=== PATIENT | female | born 1995 | race Caucasian/White ===

== ENCOUNTER → 2019-07-16 14:21 | Outpatient (CLI) | payer OTHER, SELFPAY ==
[2019-07-16 15:21] VITALS: BMI 20.9
== END ==
PROVIDERS: Referring Provider Physician Assistant; Visit Provider Physician Assistant
DX: J02.9 Acute pharyngitis, unspecified (principal)
CPT/HCPCS: 87070

== ENCOUNTER 2021-08-24 17:49 | Emergency (ER) | payer OTHER, SELFPAY ==
[2021-08-24 17:51] VITALS: BP 128/91; PULSE 84; RESP 16; TEMP 36.4; O2SAT 99; BMI 20.4
--- NOTE | 2021-08-24 19:58 | EDS_ITS ---
HPI History of Present Illness Chief Complaint: Nausea/Vomiting Informant: patient Onset/Context/Timing Onset: Days Context: Gradual Timing: Continuous Current Severity: Mild Maximum Severity: Moderate Associated Symptoms/Injury Associated Symptoms: Positive for Nausea and Vomiting; Negative for Fever, Sore Throat, Sinus Pressure, Numbness, Tingling, Preceding Aura, Visual Changes, Blurred Vision, Photophobia and Visual Loss Injury - ARIAS: Negative for Direct Trauma, Fall and Assault Narrative Narrative: 26-year-old female history of prior vertigo and migraine headaches. Said on she and her went out there drinking relatively heavily and she had a blackout. She said she did not know if she hit her head or she had any head trauma. On Sunday and Sunday she had a lot of nausea and vomiting which she attributed to hangover. States she still has a headache and does not feel well. She does have a history of migraine headaches. She denies any fever. Prior to she has been feeling fine. Prior similar symptoms: Yes Recent Illness/Hospitalization: No PFSH PFSH Medical History Back pain Knee pain Home Medications multivitamin [Multi-Daily] 1 tab PO DAILY 08/24/21 [History Last Taken Unknown] Allergy/AdvReac Type Severity Reaction Status Date / Time No Known Allergies Allergy Unverified 07/16/19 15:15 Surgical History History of breast augmentation History of reconstruction of anterior cruciate ligament tear Social History Smoking Status: Never smoker alcohol intake: current Alcohol type: wine ROS ROS ED ROS Narrative Headache with nausea and vomiting resolved. Review of Systems ROS Unobtainable: Denies due to encephalopathy Constitutional Constitutional ED: Denies chills or fever(s) Eyes Eyes: Denies change in vision ENT ENT ED: Denies ear pain or sore throat Cardiovascular Cardiovascular: Denies chest pain Respiratory/Chest Respiratory/Chest: Denies cough or dyspnea Gastrointestinal Gastrointestinal: Reports nausea and vomiting; Denies abdominal pain, constipation or diarrhea Genitourinary Genitourinary ED: Denies dysuria Musculoskeletal Musculoskeletal: Denies myalgias Integumentary Denies rash Neurologic Neurologic: Reports headache(s) Psychiatric Psychiatric: Denies depression Endocrine Endocrinology: Denies polyuria Hematologic/Lymphatic Hematologic/Lymphatic: Denies easy bruising Allergic/Immunologic Allergic/Immunologic ED: Denies urticaria EXAM Physical Exam Narrative Exam Narrative: 46-year-old female no acute distress vital signs stable afe brile. Pulse ox 9 9% on room air no signs hypoxia. She does not look septic or toxic. She is sitting at bedside in chair. No one else is in the room. H EENT exam unremarkable. Pupils round reactive light. No signs of trauma. Moist weeks membranes. Neck nontender no lymphadenopathy. No meningismus. Lungs clear to auscultation. Heart regular rhythm no murmur rate about 80. Chest were nontender. Abdomen soft nontender. Normal bowel sounds no peritoneal signs. Back nontender. Moving all 4 extremities. Nontender. Neurologic exam normal NIH of 0. 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 Normal speech. Dorsi plantarflexion intact. Fingertip to nose normal. Const Vital Signs: 08/24/21 17:51 Temperature 97.6 F L Temperature Source Temporal Pulse Rate 84 Respiratory Rate 16 Blood Pressure 128/91 H Blood Pressure Mean 103 Pulse Ox 99 Oxygen Delivery Method Room Air Positive well nourished and well developed; Negative for obese, cachectic, contractures or unkempt General Appearance ED: well developed and NAD; Negative for unkempt, cachectic, contractures, cyanotic, diaphoretic or pallor Nutritional Appearance: Negative for cachectic or obese HEENT Reports normocephalic and moist mucous membranes; Denies dry mucous membranes atraumatic; Negative for trauma, tenderness, temporal artery tenderness or vesicular rash Face and Sinus: Negative for sinus tenderness Mouth ED: No dry mucous membranes Mouth: No dry mucous membranes Eyes PERRL and EOMs intact bilaterally General Eye ED: Negative for pale conjunctiva or scleral icterus Neck no lymphadenopathy, supple, no meningeal signs and no JVD General: Negative for tenderness Resp normal respiratory effort and clear to auscultation bilaterally Auscultation: Negative for rales, rhonchi or wheezes Cardio regular rate, regular rhythm, S1 normal heart sound, S2 normal heart sound and no murmurs GI non-tender and non-distended Auscultation: normoactive bowel sounds; Negative for hyperactive bowel sounds or hypoactive bowel sounds Palpation: soft; Negative for firm, tender, guarding or rigid Back/Spine no CVA tenderness General Back: Negative for CVA tenderness or tenderness Cervical Spine: Negative for cervical spine tenderness Thoracic Spine / Upper Back: Negative for thoracic spinal tenderness Lumbar Spine / Lower Back: Negative for lumbar spinal tenderness Extremity normal to inspection and full ROM; Negative for normal capillary refill General Extremety ED: Negative for edema, tenderness or other findings General Extremity: Negative for edema or other findings Neuro oriented x3, CN's II-XII intact bilaterally and no sensory deficits noted Beverly Coma Scale: document GCS findings Spontaneous Obeys Commands Oriented 15 Sensorium / Orientation: awake, alert, oriented to person and oriented to place; Negative for orientation impaired or stuporous Speech: speech normal Motor Exam: strength 5/5 throughout; Negative for general weakness Psych Appearance: Negative for unkempt Skin General Skin Exam: Negative for jaundice or pallor Lesions: no lesions Rashes: no rashes and No rashes noted MDM MDM MDM Narrative Medical decision making narrative: 26-year-old female with a headache after New Year's when she was intoxicated and may have blacked out. Exam benign. She will be treated with IV fluids, Toradol, Benadryl and Compazine for possible migraine. Obtain screening labs and a CT of her brain. Repeat exam patient is doing well at 9:14 PM. Exam normal. She is feeling improved after the IV fluids and medications her headache is improving. Repeat exam at 9:55 PM she is doing well be discharged home. Lab Data Attestation: I reviewed the patient's lab results. Lab results narrative: Covid test negative. White count normal at 7 hemoglobin 15. Platelets 278. Electrolytes potassium 3.4 gap is 7 normal BUN and creatinine. Liver enzymes unremarkable total bilirubin 1.9. Glucose 92. CAT scan of brain shows no acute abnormality. test negative. Labs: Laboratory Results - last 24 hr 08/24/21 08/24/21 08/24/21 20:28 20:28 20:28 WBC 7.4 RBC 5.11 Hgb 15.4 H Hct 45.7 MCV 89.4 MCH 30.1 MCHC 33.7 RDW Std Deviation 37.9 RDW Coeff of Benito 11.6 Plt Count 278 MPV 9.9 Immature Gran % (Auto) 0.100 Neut % (Auto) 57.9 Lymph % (Auto) 30.4 Atlantic % (Auto) 9.1 Eos % (Auto) 2.0 Baso % (Auto) 0.5 Absolute Neuts (auto) 4.3 Absolute Lymphs (auto) 2.24 Nucleated RBC % 0 Sodium 139 Potassium 3.4 L Chloride 105 Carbon Dioxide 27.0 Anion Gap 7 BUN 16 Creatinine 0.80 Estim Creat Clear Calc 92.73 Est GFR (MDRD) Af Amer 110 Est GFR (MDRD) Non-Af 91 BUN/Creatinine Ratio 20.0 Glucose 92 Calcium 9.6 Total Bilirubin 1.90 H AST 16 ALT 23 Alkaline Phosphatase 75 Total Protein 8.6 H Albumin 4.1 Globulin 4.5 H Albumin/Globulin Ratio 0.9 Serum , Qual NEGATIVE Radiography Diagnostic Testing: Clinical Impression(s) from Imaging Studies Brain CT 08/24/21 20:40 IMPRESSION: Negative Brain CT without contrast. Electronically Signed: Erick Castro DO at 21:48 EST Tel , Service support , Discharge Plan Triage Chief Complaint: Nausea/Vomiting Other Complaint: Headache ED Provider: Arthur Keller Dx/Rx/DC Orders Clinical Impression: Hangover, Headache Instructions: ED Headache Unspecified Prescriptions: No Action multivitamin [Multi-Daily] Tablet 1 tab PO DAILY RF: 0 [facility] Care Provider: [facility] Referrals: [facility] [Primary Care Provider] - 3-5 Days if not improving Activity Restrictions/Additional Instructions: Plenty of fluids and rest. Motrin and Tylenol for pain. Return if feeling worse or follow-up with your primary care provider if not improving. Your CAT scan and labs tonight were all normal. Disposition Disposition: Home, Self Care
[2021-08-24] MEDS: proCHLORPERazine 10 MG/2 ML Vial IV (20:30)
[2021-08-24] MEDS: 0.9% Normal Saline 1,000 ML 1000 ML IV (20:30)
[2021-08-24] MEDS: DiphenhydrAMINE 50 MG/ML Syringe 25 MG IV (20:33)
[2021-08-24] MEDS: Ketorolac 30 MG/ML Syringe IV (20:34)
--- NOTE | 2021-08-24 20:40 | CT_ITS ---
INDICATION: headache EXAMINATION: CT BRAIN - CT Head or Brain W/O Contrast Injection TECHNIQUE: Multiple axial images were obtained of the head without intravenous contrast. A radiation dose optimization technique was used for this scan. IV Contrast dosage and agent: None. COMPARISON: None. FINDINGS: BRAIN PARENCHYMA: No intra- or extra-axial hemorrhage. No intracranial mass or mass effect. Madrigal/white matter differentiation is maintained and there is no blurring of the basal ganglia. There is no hyperdense vessel. Posterior fossa structures are unremarkable. CSF SPACES: Appropriate for age. No hydrocephalus. Basal cisterns are patent. CALVARIUM, SKULL BASE, PARANASAL SINUSES AND MASTOID AIR CELLS: Clear. No discrete lytic or blastic abnormalities. ORBITS: Both globes, extraocular muscles, optic nerves and retrobulbar fat appear unremarkable. ASPECTS Score for Acute Strokes: 10 CT/Brain/Head without Contrast IMPRESSION: Negative Brain CT without contrast. Electronically Signed: Erick Castro DO at 21:48 EST Tel , Service support ,
[2021-08-24 20:41] LABS: Absolute Lymphocyte Count 2.24 X10^3/uL (0.83-4.51); Absolute Neutrophil Count 4.3 X10^3/uL (2.0-7.7); Basophil# 0.04 X10^3/uL; Basophil% 0.5 % (0-1); Eosinophil# 0.15 X10^3/uL; Hematocrit 45.7 % (37-47); Hemoglobin 15.4 g/dL (12.0-15.0); Lymphocyte # 2.24 X10^3/ul (0.83-4.51); Lymphocyte % 30.4 % (19-41); Mean Corp Hgb Conc 33.7 g/dL (32-36); Mean Corpuscular Hgb 30.1 pg (27.0-32.0); Mean Corpuscular Volume 89.4 fL (81-99); Mean Platelet Vol. 9.9 fl (6.2-12.0); Monocyte# 0.67 X10^3/uL; Monocyte% 9.1 % (0-10); NRBC Flagged by Analyzer 0 % (0-5); Neutrophil # 4.27 X10^3/uL (2.7-7.7); Neutrophil % 57.9 % (47-70); Platelet Count 278 K/mm3 (150-450); RBC Distribution Width CV 11.6 % (11.6-14.6); RBC Distribution Width SD 37.9 fl (35.1-43.9); Red Blood Count 5.11 M/mm3 (4.2-5.4); White Blood Count 7.4 K/mm3 (4.4-11.0)
[2021-08-24 20:58] LABS: ALB/GLOB Ratio 0.9 RATIO (0.9-2.4); AST(SGOT) 16 U/L (15-37); Alanine Aminotransfer ALT/SGPT 23 U/L (13-56); Albumin, Serum 4.1 g/dL (3.2-5.0); Alkaline Phosphatase 75 U/L (45-117); Anion Gap 7 (5-15); BUN 16 mg/dL (7-18); Calcium,Total 9.6 mg/dL (8.5-10.1); Chloride 105 mmol/L (98-107); EST Glomerular Filtration Rate 91 mL/min (>60); Est Glom Filt Rate - Afr Amer 110 mL/min (>60); Estimated Creatinine Clearance 92.73 ml/min; Globulin 4.5 g/dL (2.2-4.2); Glucose 92 mg/dL (74-106); Potassium 3.4 mmol/L (3.5-5.1); Protein, Total 8.6 g/dL (6.4-8.2); Sodium Level 139 mmol/L (136-145)
[2021-08-24 21:17] LABS: Internal QC Validated? YES +Cl - CLEAR BKGD; Pregnancy, Serum, hCG Quali. NEGATIVE Negative
[2021-08-24 22:07] VITALS: BP 109/68; PULSE 71; RESP 18; O2SAT 97
== END 2021-08-24 22:09 | disposition home or self-care (01) ==
PROVIDERS: Emergency Provider Emergency Medicine; Visit Provider Emergency Medicine
DX: F10.129 Alcohol abuse with intoxication, unspecified (principal); G43.909 Migraine, unspecified, not intractable, without status migrainosus
CPT/HCPCS: 70450; 80053; 84703; 85025; 87426; 96361; 96374; 96375; 99282

== ENCOUNTER → 2022-03-07 | Outpatient (CLI) | payer OTHER, SELFPAY ==
[2022-03-07 12:41] LABS: Amphetamine Urine VISTA NEGATIVE (<1000 ng/mL); Barbiturate Urine VISTA NEGATIVE (< 200 ng/mL); Benzodiazepine Urine VISTA NEGATIVE (< 200 ng/mL); Cocaine Urine VISTA NEGATIVE (< 300 ng/mL); Ecstacy Urine VISTA NEGATIVE (< 500 ng/mL); Methadone Urine VISTA NEGATIVE (< 300 ng/mL); PCP Urine VISTA NEGATIVE (< 25 ng/mL); THC Urine VISTA NEGATIVE (< 50 ng/mL); Vista UDS pH Range 5
[2022-03-08 22:06] LABS: Chlamydia By Nucleic Acid AMP Negative (Negative)
[2022-03-09 15:39] LABS: Gonococcus By Nucleic Acid AMP Negative (Negative)
== END | disposition home or self-care (01) ==
PROVIDERS: Referring Provider Obstetrics & Gynecology; Visit Provider Obstetrics & Gynecology
DX: Z34.00 Encounter for supervision of normal first pregnancy, unspecified trimester (principal)
CPT/HCPCS: 80307; 87086; 87088; 87491; 87591

== ENCOUNTER → 2022-03-14 | Outpatient (CLI) | payer OTHER, SELFPAY | END | disposition home or self-care (01) | LOC: LABSPEC 16:18 | PROVIDERS: Referring Provider Obstetrics & Gynecology; Visit Provider Obstetrics & Gynecology | DX: N39.0 Urinary tract infection, site not specified (principal) | CPT/HCPCS: 87086; 87088 ==

== ENCOUNTER → 2022-03-17 | Outpatient (CLI) | payer OTHER, SELFPAY ==
[2022-03-17 12:38] LABS: Absolute Lymphocyte Count 2.14 X10^3/uL (0.83-4.51); Absolute Neutrophil Count 7.3 X10^3/uL (2.0-7.7); Basophil# 0.03 X10^3/uL; Basophil% 0.3 % (0-1); Eosinophil# 0.24 X10^3/uL; Eosinophils% 2.3 % (0-5); Hematocrit 39.3 % (37-47); Hemoglobin 13.4 g/dL (12.0-15.0); Lymphocyte # 2.14 X10^3/ul (0.83-4.51); Lymphocyte % 20.6 % (19-41); Mean Corp Hgb Conc 34.1 g/dL (32-36); Mean Corpuscular Hgb 30.6 pg (27.0-32.0); Mean Corpuscular Volume 89.7 fL (81-99); Monocyte# 0.67 X10^3/uL; Monocyte% 6.4 % (0-10); NRBC Flagged by Analyzer 0 % (0-5); Neutrophil # 7.27 X10^3/uL (2.7-7.7); Platelet Count 224 K/mm3 (150-450); RBC Distribution Width CV 11.9 % (11.6-14.6); RBC Distribution Width SD 39.1 fl (35.1-43.9); Red Blood Count 4.38 M/mm3 (4.2-5.4); White Blood Count 10.4 K/mm3 (4.4-11.0)
[2022-03-17 13:31] LABS: NATERA MAILED SPECIMEN
[2022-03-17 14:11] LABS: HIV - WCH Non-Reactive (Nonreactive); Hepatitis B Surface Antigen Non-Reactive (Nonreactive); Hepatitis C Antibody Non-Reactive (Nonreactive); Rubella IgG Reactive (Nonreactive); Syphilis Antibodies Non-reactive
== END | disposition home or self-care (01) ==
LOC: PAVLAB 12:19
PROVIDERS: Referring Provider Obstetrics & Gynecology; Visit Provider Obstetrics & Gynecology
DX: Z34.00 Encounter for supervision of normal first pregnancy, unspecified trimester (principal)
CPT/HCPCS: 36415; 85025; 86703; 86762; 86780; 86803; 86850; 86900; 86901; 87340

== ENCOUNTER → 2022-07-24 | Outpatient (CLI) | payer OTHER, SELFPAY ==
[2022-07-24 08:30] LABS: Absolute Lymphocyte Count 1.93 X10^3/uL (0.83-4.51); Absolute Neutrophil Count 6.5 X10^3/uL (2.0-7.7); Basophil# 0.02 X10^3/uL; Basophil% 0.2 % (0-1); Eosinophil# 0.35 X10^3/uL; Eosinophils% 3.7 % (0-5); Hematocrit 36.9 % (37-47); Hemoglobin 12.3 g/dL (12.0-15.0); Lymphocyte # 1.93 X10^3/ul (0.83-4.51); Lymphocyte % 20.2 % (19-41); Mean Corp Hgb Conc 33.3 g/dL (32-36); Mean Corpuscular Hgb 31.3 pg (27.0-32.0); Mean Corpuscular Volume 93.9 fL (81-99); Monocyte# 0.66 X10^3/uL; Monocyte% 6.9 % (0-10); NRBC Flagged by Analyzer 0 % (0-5); Neutrophil # 6.49 X10^3/uL (2.7-7.7); Platelet Count 200 K/mm3 (150-450); RBC Distribution Width SD 45.1 fl (35.1-43.9); Red Blood Count 3.93 M/mm3 (4.2-5.4); White Blood Count 9.6 K/mm3 (4.4-11.0)
[2022-07-24 08:47] LABS: Glucose Challenge Gest 1H 50g 92 mg/dL (70-140)
== END | disposition home or self-care (01) ==
PROVIDERS: Referring Provider Nurse Practitioner Women's Health; Visit Provider Nurse Practitioner Women's Health
DX: Z34.90 Encounter for supervision of normal pregnancy, unspecified, unspecified trimester (principal); Z13.1 Encounter for screening for diabetes mellitus
CPT/HCPCS: 36415; 82950; 85025

== ENCOUNTER → 2022-08-17 | Outpatient (CLI) | payer OTHER, SELFPAY ==
[2022-08-17 09:48] LABS: Basophil% 0.2 % (0-1); Eosinophils% 2.4 % (0-5); Hematocrit 36.5 % (37-47); Hemoglobin 12.6 g/dL (12.0-15.0); Lymphocyte % 14.3 % (19-41); Mean Corp Hgb Conc 34.5 g/dL (32-36); Mean Corpuscular Hgb 32.6 pg (27.0-32.0); Mean Corpuscular Volume 94.6 fL (81-99); Mean Platelet Vol. 10.5 fl (6.2-12.0); Monocyte% 5.2 % (0-10); Neutrophil % 77.2 % (47-70); Platelet Count 181 K/mm3 (150-450); RBC Distribution Width CV 12.7 % (11.6-14.6); RBC Distribution Width SD 44.1 fl (35.1-43.9); Red Blood Count 3.86 M/mm3 (4.2-5.4); White Blood Count 10.2 K/mm3 (4.4-11.0)
[2022-08-17 09:49] LABS: Absolute Lymphocyte Count 1.46 X10^3/uL (0.83-4.51); Absolute Neutrophil Count 7.9 X10^3/uL (2.0-7.7); Basophil# 0.02 X10^3/uL; Eosinophil# 0.24 X10^3/uL; Lymphocyte # 1.46 X10^3/ul (0.83-4.51); Monocyte# 0.53 X10^3/uL; NRBC Flagged by Analyzer 0 % (0-5); Neutrophil # 7.86 X10^3/uL (2.7-7.7)
[2022-08-17 10:13] LABS: ALB/GLOB Ratio 0.6 RATIO (0.9-2.4); AST(SGOT) 18 U/L (15-37); Alanine Aminotransfer ALT/SGPT 16 U/L (13-56); Albumin, Serum 2.3 g/dL (3.2-5.0); Alkaline Phosphatase 117 U/L (45-117); Anion Gap 7 (5-15); BUN 12 mg/dL (7-18); Calcium,Total 8.6 mg/dL (8.5-10.1); Chloride 106 mmol/L (98-107); EST Glomerular Filtration Rate 126 mL/min (>60); Est Glom Filt Rate - Afr Amer 153 mL/min (>60); Glucose 94 mg/dL (74-106); Potassium 3.7 mmol/L (3.5-5.1); Protein, Total 6.3 g/dL (6.4-8.2); Sodium Level 138 mmol/L (136-145)
== END | disposition home or self-care (01) ==
PROVIDERS: Referring Provider Nurse Practitioner Women's Health; Visit Provider Nurse Practitioner Women's Health
DX: R10.11 Right upper quadrant pain (principal)
CPT/HCPCS: 36415; 80053; 85025

== ENCOUNTER → 2022-08-24 | Outpatient (CLI) | payer OTHER, SELFPAY ==
--- NOTE | 2022-08-24 09:01 | US_ITS ---
STUDY: ABDOMINAL ULTRASOUND - RIGHT UPPER QUADRANT REASON FOR VISIT: Female, 27 years old RUQ pain -- patient 33weeks preg TECHNIQUE: Ultrasound evaluation of the right upper quadrant was performed with real-time and static hodgson-scale imaging. TECHNICAL QUALITY: Limited. Examination limited due to the patient?s condition. COMPARISON: None. FINDINGS: Liver: The liver measures 13.9 cm. There is normal echogenicity of the liver. The bile ducts are within normal limits. There is hepatic color flow. The direction of portal flow is hepatopetal. There is no demonstrated mass lesion. Gallbladder: Normal distended gallbladder. The gallbladder wall measures 1.2 mm. There is a negative sonographic Browne''s sign. There is no pericholecystic fluid. There are no gallstones. Common Bile Duct (C.B.D.): The common bile duct measures 2.3 mm. Pancreas: There is nonvisualization of the pancreas due to overlying bowel gas. Right Kidney: Normal size of the right kidney. The right kidney measures 10.4 cm x 5.6 cm x 4.3 cm. Normal renal cortex. The right cortex measures 1.5 cm. There is no demonstrated renal mass or cyst. There is no right hydronephrosis. US/Gallbladder IMPRESSION: Normal right upper quadrant ultrasound examination. Electronically Signed: Ambrocio Shelton MD at 14:37 EST ,
== END | disposition home or self-care (01) ==
PROVIDERS: Nurse Practitioner Women's Health; Referring Provider Obstetrics & Gynecology; Visit Provider Obstetrics & Gynecology
DX: R10.11 Right upper quadrant pain (principal)
CPT/HCPCS: 36415; 76705

== ENCOUNTER → 2022-09-12 | Outpatient (CLI) | payer OTHER, SELFPAY ==
--- NOTE | 2022-09-12 14:27 | US_ITS ---
STUDY: SECOND AND THIRD TRIMESTER OBSTETRICAL ULTRASOUND - LIMITED REASON FOR EXAM: Female, 27 years old uterine size discrepancy -- growth LMP: Unknown PRIOR ULTRASOUND: None. TECHNIQUE: Transabdominal TECHNICAL QUALITY: Adequate. FINDINGS: There is a single intrauterine fetus. The fetus is in a cephalic presentation. There is demonstrated cardiac activity with a heart rate of 150 bpm. There is a normal amniotic fluid volume. The largest amniotic fluid pocket measures 3.3 cm. The amniotic fluid index (UZIEL) is 11.4 cm. The placenta is fundal. There are Grade 3 placental changes. The cervix measures 3.7 cm in length. BIOMETRY: BPD: 8.6 cm: 34 weeks, 5 days HC: 31.7 cm: 35 weeks, 4 days AC: 31.3 cm: 35 weeks, 2 days FL: 6.6 cm: 34 weeks, 0 days Age by LMP: 35 weeks, 4 days. JOJO by LMP: October 13, 2022. age by current US: 35 weeks, 1 days. JOJO by current US: October 16 2022. Estimated weight: 2541 grams, +/- 331 grams, 31 percentile. Cephalic index 77% FL/AC 21% FL/BPD 77 HC/AC 1.01 US/OB Limited With Biometrics IMPRESSION: 35 weeks 1 day intrauterine . head very low in the pelvis and difficult to image. Electronically Signed: Derek Bryson MD at 0:10 EST ,
== END | disposition home or self-care (01) ==
LOC: OPUS 14:25
PROVIDERS: Visit Provider Registered Nurse
DX: O26.843 Uterine size-date discrepancy, third trimester (principal); Z3A.35 35 weeks gestation of pregnancy
CPT/HCPCS: 76816

== ENCOUNTER → 2022-09-18 | Outpatient (CLI) | payer OTHER, SELFPAY | END | disposition home or self-care (01) | PROVIDERS: Referring Provider Registered Nurse; Visit Provider Registered Nurse | DX: Z34.00 Encounter for supervision of normal first pregnancy, unspecified trimester (principal) | CPT/HCPCS: 87081 ==

== ENCOUNTER → 2022-10-04 | Outpatient (CLI) | payer OTHER, SELFPAY | END | disposition home or self-care (01) | PROVIDERS: Visit Provider Registered Nurse | DX: O47.9 False labor, unspecified (principal) | CPT/HCPCS: 84112 ==

== ENCOUNTER → 2022-10-16 | Outpatient (CLI) | payer OTHER, SELFPAY ==
[2022-10-16 13:38] LABS: Absolute Lymphocyte Count 1.75 X10^3/uL (0.83-4.51); Absolute Neutrophil Count 4.9 X10^3/uL (2.0-7.7); Basophil# 0.04 X10^3/uL; Basophil% 0.5 % (0-1); Eosinophil# 0.09 X10^3/uL; Eosinophils% 1.2 % (0-5); Hematocrit 41.1 % (37-47); Lymphocyte # 1.75 X10^3/ul (0.83-4.51); Lymphocyte % 23.2 % (19-41); Mean Corp Hgb Conc 34.1 g/dL (32-36); Mean Corpuscular Hgb 31.5 pg (27.0-32.0); Mean Corpuscular Volume 92.4 fL (81-99); Mean Platelet Vol. 12.8 fl (6.2-12.0); Monocyte# 0.69 X10^3/uL; Monocyte% 9.1 % (0-10); NRBC Flagged by Analyzer 0.3 % (0-5); Neutrophil # 4.94 X10^3/uL (2.7-7.7); Neutrophil % 65.5 % (47-70); Platelet Count 152 K/mm3 (150-450); RBC Distribution Width CV 12.5 % (11.6-14.6); RBC Distribution Width SD 42.5 fl (35.1-43.9); Red Blood Count 4.45 M/mm3 (4.2-5.4); White Blood Count 7.6 K/mm3 (4.4-11.0)
[2022-10-16 14:10] LABS: ALB/GLOB Ratio 0.5 RATIO (0.9-2.4); AST(SGOT) 29 U/L (15-37); Alanine Aminotransfer ALT/SGPT 22 U/L (13-56); Albumin, Serum 2.4 g/dL (3.2-5.0); Alkaline Phosphatase 289 U/L (45-117); Anion Gap 7 (5-15); BUN 17 mg/dL (7-18); Calcium,Total 9.3 mg/dL (8.5-10.1); Chloride 104 mmol/L (98-107); EST Glomerular Filtration Rate 70 mL/min (>60); Est Glom Filt Rate - Afr Amer 85 mL/min (>60); Globulin 4.5 g/dL (2.2-4.2); Glucose 64 mg/dL (74-106); Protein, Total 6.9 g/dL (6.4-8.2); Sodium Level 135 mmol/L (136-145)
--- NOTE | 2022-10-16 16:38 | US_ITS ---
STUDY: SECOND AND THIRD TRIMESTER OBSTETRICAL ULTRASOUND - LIMITED REASON FOR EXAM: Female, 27 years old cholestasis -- growth with BPP LMP: PRIOR ULTRASOUND: None. TECHNIQUE: Transabdominal TECHNICAL QUALITY: Adequate. FINDINGS: There is a single intrauterine fetus. The fetus is in a cephalic presentation. There is demonstrated cardiac activity with a heart rate of 123 bpm. There is a normal amniotic fluid volume. The largest amniotic fluid pocket measures 5.8 cm. The amniotic fluid index (UZIEL) is 11.4 cm. The placenta is fundal There are Grade 3 placental changes. . BIOMETRY: BPD: 9.53 cm: 38 weeks, 6 days HC: 34.9 cm: 40 weeks, 4 days AC: 31.48 cm: 35 weeks, 3 days FL: 7.36 cm: 37 weeks, 5 days Age by LMP: 40 weeks, 3 days. JOJO by LMP: October 13, 2022. age by prior US: 40 weeks, 0 days. JOJO by prior US: October 16, 2022. age by current US: 38 weeks, 3 days. JOJO by current US: October 27, 2022. Estimated weight: 3030 grams, +/- 454 grams, NA percentile. IMPRESSION: Viable term intrauterine gestation approximately 38-39 weeks gestational age. No significant abnormality Electronically Signed: Feng Seymour MD at 18:48 EST , STUDY: OBSTETRICAL ULTRASOUND - BIOPHYSICAL PROFILE REASON FOR EXAM: Female, 27 years old cholestasis -- growth with BPP LMP: PRIOR ULTRASOUND: None. TECHNIQUE: Transabdominal TECHNICAL QUALITY: Adequate. FINDINGS: There is a single intrauterine fetus. The fetus is in a cephalic presentation. There is demonstrated cardiac activity with a heart rate of 123 bpm. There is a normal amniotic fluid volume. The largest amniotic fluid pocket measures 5.8 cm. The amniotic fluid index (UZIEL) is 11.4 cm. The placenta is fundal There are Grade 3 placental changes. Age by LMP: 40 weeks, 3 days. JOJO by LMP: October 13, 2022. age by prior US: 38 weeks, 3 days. JOJO by prior US: October 27, 2022. BIOPHYSICAL PROFILE: Breathing Movements (FBM): 0 Gross Body Movements (GBM): 2 Tone (FT): 2 Amniotic Fluid Volume (AFV): 2 TOTAL SCORE: 6 / 8 US/OB Limited With Biometrics IMPRESSION: Abnormal biophysical profile of 6/8. Electronically Signed: Feng Seymour MD at 18:50 EST ,
== END | disposition home or self-care (01) ==
PROVIDERS: Referring Provider Registered Nurse; Visit Provider Registered Nurse
DX: O26.619 Liver and biliary tract disorders in pregnancy, unspecified trimester (principal); O99.719 Diseases of the skin and subcutaneous tissue complicating pregnancy, unspecified trimester; Z3A.00 Weeks of gestation of pregnancy not specified
CPT/HCPCS: 36415; 76816; 76819; 80053; 85025

== ENCOUNTER 2022-10-19 08:37 | Inpatient (IN) | payer OTHER, SELFPAY ==
[2022-10-19] VITALS (21 sets, daily range): BP systolic 122–157; BP diastolic 76–87; PULSE 54–93; TEMP 36.8–37.4; O2SAT 88–100; BMI 27.8
[2022-10-19] MEDS: 0.9% Saline Lock 10 ML Syringe IV (09:00)
[2022-10-19 09:18] LABS: Absolute Lymphocyte Count 2.03 X10^3/uL (0.83-4.51); Absolute Neutrophil Count 5.2 X10^3/uL (2.0-7.7); Basophil# 0.04 X10^3/uL; Basophil% 0.5 % (0-1); Eosinophil# 0.09 X10^3/uL; Eosinophils% 1.1 % (0-5); Hematocrit 41.2 % (37-47); Hemoglobin 14.1 g/dL (12.0-15.0); Lymphocyte # 2.03 X10^3/ul (0.83-4.51); Lymphocyte % 25.3 % (19-41); Mean Corp Hgb Conc 34.2 g/dL (32-36); Mean Corpuscular Hgb 31.7 pg (27.0-32.0); Mean Corpuscular Volume 92.6 fL (81-99); Mean Platelet Vol. 12.8 fl (6.2-12.0); Monocyte% 7.5 % (0-10); NRBC Flagged by Analyzer 0 % (0-5); Neutrophil # 5.19 X10^3/uL (2.7-7.7); Neutrophil % 64.7 % (47-70); Platelet Count 141 K/mm3 (150-450); RBC Distribution Width CV 12.2 % (11.6-14.6); RBC Distribution Width SD 41.6 fl (35.1-43.9); Red Blood Count 4.45 M/mm3 (4.2-5.4)
--- NOTE | 2022-10-19 12:18 | PCM.HP.OB ---
HPI - General General Date of Admission: 10/19/22 HPI Narrative GERA AHN, is a 27 F who presents IAL 3-4 cm dilated with regular ctx made change to 5. Maternal Data Information JOJO Calculator Estimated Delivery Date Method Current WG Current Estimate 10/13/22 LMP (Uncertain) 40w 6d Other Estimates 10/14/22 Ultrasound #1 40w 5d PFSH PFSH Medical History Back pain Knee pain Home Medications prenat.vits,zachariah,lsy-[id number] 1 tab PO DAILY 03/01/22 [History Last Taken Unknown] Allergy/AdvReac Type Severity Reaction Status Date / Time Anesthetics - Amide Type - AdvReac Mild Vomiting Verified 10/19/22 09:05 Select A adheisive Allergy Mild Rash Uncoded 10/19/22 09:05 Surgical History History of breast augmentation History of reconstruction of anterior cruciate ligament tear Social History adopted: No household members: spouse housing: house number of children: 0 current occupational status: employed 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 current occupational exposures/hazards: No pets and animals: Yes pets and animals: dog(s) leisure activities: exercise history of recent travel: No sexually active: Yes Smoking Status: Never smoker alcohol intake: former year quit: 2021 details: Last drank in January substance use type: does not use well-balanced diet: daily or most days caffeine: No eating out: rarely or never during the past year weight has: remained stable what type of physical activity do you participate in: walking, bicycling and weight training frequency: 3-4 times per week duration: 30-45 minutes/day karla/gnosticism: Non-Oriental Orthodox/Independent seatbelt use: always do you feel safe at home: Yes additional social history: - [place] History 1 Elective abortions Hx Para 0 Spontaneous abortions Hx # Term Pregnancies Ectopic pregnancies Hx # Pregnancies Multiple births # of living children Visit Details Expected Delivery Route/Plan Labor Preferences- CB/BF classes: encouraged labor support person: Enrique labor intervention preferences: low interventions pain management options preferred: limited, tub cut cord/dad catch: yes. enrique would like to catch : yes PP control planned: discussed discussed possible routes of delivery and associated risks: [] special requests: Wants tub Plans Covid status: unvaccinated Flu vaccine: declines Tdap vaccine: declines Rhogam: A positive LARC form signed: yes movement and labor precautions reviewed. Problem list reviewed and updated with the most current plan of care details and appropriate orders placed. Relevant counseling for the gestational age provided. Continue routine care and follow up unless otherwise noted in visit notes/problem list details OB Flowsheet Initial Weight: Not Recorded Date <del>?</del> EGA Weight BP Urine Prot <del>?</del> Glucose FHR FuHt Pres Dilation <del>?</del> Effaced St Visit Note 04/03/22 <del>?</del> 12w 3d 123 lb 118/60 Negative <del>?</del> Negative 168 <del>?</del> SM- no vb cramping 05/02/22 <del>?</del> 16w 4d 125 lb 102/62 Negative <del>?</del> Negative 154 <del>?</del> MH-No bleeding or cramping. Occa headache. Enc try tylenol. 05/30/22 <del>?</del> 20w 4d 126 lb 96/62 Negative <del>?</del> Negative 150 20 <del>?</del> LC- no vb/cramping. denies concerns. has rpt images scheduled for suboptimal images 06/27/22 <del>?</del> 24w 4d 138 lb 2 oz 98/64 Negative <del>?</del> Negative 149 24 <del>?</del> -No VB, LOF. Good FM. Larc done. 28 wk labs next visit 07/24/22 <del>?</del> 28w 3d 143 lb 102/64 <del>?</del> 145 28 <del>?</del> - no vb lof good fm no regular ctx interested in hydrotherapy 08/09/22 <del>?</del> 30w 5d 147 lb 107/68 Negative <del>?</del> Negative 138 30 <del>?</del> -No VB, LOF. Good FM. Denies concerns 08/17/22 <del>?</del> 31w 6d 149 lb 122/66 Negative <del>?</del> Negative 154 31 <del>?</del> -Work in for worsening RUQ abd pain. Some nausea. Denies itching. Good FM. No VB. Labs and GB US ordered. 09/04/22 <del>?</del> 34w 3d 153 lb 113/65 <del>?</del> 135 30 <del>?</del> LC- doing well. no vb/ctx/lof. good fm. reviewed plan. LC- doing well. no vb/ctx/lof. good fm. obtaining growth scan for size less than dates. reviewed plan. 09/18/22 <del>?</del> 36w 3d 155 lb 8 oz 115/74 Negative <del>?</del> Negative 140 33 Cephalic <del>?</del> LC- going well. growth at 31%. +fm. no vb/lof/ctx. gbs obtained today. declines VE. 10/04/22 <del>?</del> 38w 5d 155 lb 6 oz 124/70 Negative <del>?</del> Negative 143 37 Cephalic 0.5 <del>?</del> 20 -4 LC- doing well. no concerns. good fm. no vb/ctx/lof. 10/09/22 <del>?</del> 39w 3d 157 lb 118/67 Negative <del>?</del> Negative 138 38 Cephalic 1 <del>?</del> 50 -3 LC- doing well. no concerns.good fm. no vb/consistent ctx or lof. membrane swept today. reviewed iol at 41 weeks. r/b/a. will decide for next week. 10/16/22 <del>?</del> 40w 3d 157 lb 137/73 Negative <del>?</del> Negative 140 37 Cephalic 2 <del>?</del> 80 -1 LC- having itching palms/feet. LC- having itching palms/feet. cervix posterior, soft. will obtain LC- having itching palms/feet. cervix posterior, soft. will obtain CBC,CMP, bile acids. growth scan with BPP. NST in office reactive. declines actigall. 10/19/22 <del>?</del> 40w 6d 167 lb 8.821 oz 132/84 130/77 157/84 <del>?</del> <del>?</del> NST FHR Rate Baby A Baseline: 140 Variability:: Moderate Accelerations:: 15 x 15 Decelerations:: None NST Reactive:: Yes FHR Category:: Category I Uterine Activity:: q3-5 ROS Constitutional Constitutional: Reports systems reviewed and no addt'l complaints, except as documented ENT HEENT: Reports systems reviewed and no addt'l complaints, except as documented Cardiovascular Cardiovascular: Reports systems reviewed and no addt'l complaints, except as documented Respiratory/Chest Respiratory/Chest: Reports systems reviewed and no addt'l complaints, except as documented Gastrointestinal Gastrointestinal: Reports systems reviewed and no addt'l complaints, except as documented and nausea; Denies abdominal pain Genitourinary Genitourinary: Reports systems reviewed and no addt'l complaints, except as documented, contractions Details: present and frequency (regular ) and movement Details: present Musculoskeletal Musculoskeletal: Reports systems reviewed and no addt'l complaints, except as documented Integumentary Integumentary: Reports as per HPI Neurologic Neurologic: Reports systems reviewed and no addt'l complaints, except as documented Endocrine Endocrinology: Reports systems reviewed and no addt'l complaints, except as documented Vital Signs Vital Signs Vital Signs: 10/19/22 07:49 10/19/22 07:49 10/19/22 07:49 Temperature Temperature Source Pulse Rate 54 L 55 L Blood Pressure 132/84 H BP Systolic 132 BP Diastolic 84 Pulse Ox 10/19/22 07:49 10/19/22 07:49 10/19/22 07:49 Temperature 98.2 F Temperature Source Temporal Pulse Rate Blood Pressure BP Systolic BP Diastolic Pulse Ox 99 10/19/22 11:33 10/19/22 11:33 Temperature Temperature Source Pulse Rate 55 L Blood Pressure 130/77 H BP Systolic 130 BP Diastolic 77 Pulse Ox Weight Weight: 167 lb 8.821 oz Body Mass Index (BMI) 27.8 Physical Exam Const alert, oriented x3 and healthy appearing Constitutional Narrative: uncomfortable with contractions HEENT normocephalic and moist oral mucous membranes Head and Scalp: atraumatic Neck full ROM, no lymphadenopathy, supple and thyroid normal General: trachea midline Thyroid: thyroid normal Lymph Lymphatic: no lymphadenopathy noted Chest inspection of chest normal Resp normal respiratory effort Cardio regular rate GI normal to inspection, nondistended, normoactive bowel sounds, soft to palpation and non-tender Inspection: gravid external exam normal Bimanual Exam - Vag & Uterus: uterus non-tender Manual OB Exam: estimated gestational size appropriate, presentation cephalic, dilated, effaced and station Extremity normal to inspection General Extremity: Negative for edema Skin no rashes or lesions noted Neuro deep tendon reflexes 2+ bilaterally Motor Exam: strength 5/5 throughout and clonus absent Psych mental status grossly normal Labs Labs Labs: Blood Type A POSITIVE Antibody Screen NEGATIVE Hct 41.2 % (37-47) Hgb 14.1 g/dL (12.0-15.0) Pap Smear Negative Obstetrics US Syphilis Total Ab Non-reactive Rubella IgG Antibody Reactive (Nonreactive) Hep Bs Antigen Non-Reactive (Nonreactive) Chlamydia DNA (MELISSA) Negative (Negative) Neisseria gonorrhoeae DNA (MELISSA) Negative (Negative) HIV 1&2 Antibody Non-Reactive (Nonreactive) Glucose 1 Hr 50 gm 92 mg/dL (70-140) Miscellaneous Test Assessment & Plan (1) , supervision, normal, first: COMMENT: PRR , boy, Essie JOJO 10/13/21, Spouse Enrique (2) : QUALIFIERS: Weeks of gestation: 40 weeks Qualified Code(s): Z3A.40 - 40 weeks gestation of COMMENT: gbs negative. anatomy nl, declined carrier testing. NIPT low risk growth scan 31% at 35 weeks (3) Active labor at term: PLAN: Plan Patient presents IAL, plan expectant management for , pitocin/AROM PRN if needed. Pain management: minimal intervention. GBS neg. Management of any complications: none I have reviewed the PFSH and made any clinically relevant updates.
--- NOTE | 2022-10-19 18:59 | DCINST_ITS ---
Discharge Instructions Diet Discharge Diet: No restrictions Activity Discharge Activity: Return to Normal Activity, May Drive, May Shower and May Take a Tub Bath (in 4 weeks) May resume sexual activity in: 6-8 weeks (after seen by OB provider) Weight Bearing Status: Full weight bearing Lifting Restrictions: none Dressing / Incision Call your doctor if you observe: Fever of 101 or Higher, Inability to urinate, Using more than 1 pad per hour (for more than 2 hours in a row or more), Shortness of breath, Dizziness, Chest pain and - (headache not controlled with tylenol, change in vision) Follow Up Care When: in 6 weeks for visit, call the office to make the appointment. If you had elevated blood pressures call the office to be seen within 1 week. Test Results: Test results from this visit will be discussed in further detail at your follow- up appointment, if applicable. Discharge Plan Admission Admit Date/Time: 10/19/22 08:37 Attending Provider: Jailyn Porter Primary Care Provider: [facility],[place] Discharge Orders/Prescriptions Prescriptions: No Action prenat.vits,zachariah,yie-[id number] Tablet 1 tab PO DAILY Referrals / Follow Up: [facility],[place] [Primary Care Provider] -
--- NOTE | 2022-10-19 18:59 | EX.PCM.OBRPT ---
Assessment & Plan (1) Active labor at term: (2) Itching: COMMENT: sole of feet/hands since bile acids, CMP, cbc bpp 10/16/2022. nst of sunday if LFTs stable on 10/16, if elevated will be induced today. reviewed with Ronald Bill MD who agrees with above plan (3) RUQ abdominal pain: COMMENT: CBC, CMP, bile acids. GB US. pepcid, 08/28/22 nl gallbladder US.08/30 bile acids Negative. (4) , supervision, normal, first: COMMENT: PRR , boy, Raypebbles JOJO 10/13/21, Spouse Brandon (5) : QUALIFIERS: Weeks of gestation: 40 weeks Qualified Code(s): Z3A.40 - 40 weeks gestation of COMMENT: gbs negative. anatomy nl, declined carrier testing. NIPT low risk growth scan 31% at 35 weeks (6) Vaginal delivery: COMMENT: SM 40 boy Essie Maternal Data Information JOJO Calculator Estimated Delivery Date Method Current WG Current Estimate 10/13/22 LMP (Uncertain) 40w 6d Other Estimates 10/14/22 Ultrasound #1 40w 5d Vaginal Delivery Operative Information Date of Procedure: 10/19/22 Pre-Operative Diagnosis: see a/p diagnoses Post-Operative Diagnosis: same Surgery / Procedure Performed: Spontaneous Vaginal Delivery Type of Anesthesia: Local with 1% Lidocaine Special Medications: none Estimated Blood Loss: 300 Fluids Replaced: crystalloid Findings Description of Procedure: Patient began pushing and delivered the head in the DURAN presentation. The head was delivered atraumatically . The anterior and posterior shoulders delivered without complication followed by the rest of the infant and the infant was placed on the maternal abdomen. Delayed cord clamping was employed for approximately 60 seconds. Cord was clamped and cut and gentle traction was applied to the cord and the placenta delivered spontaneously immediately following it was noted to be intact with three-vessel cord. The perineum and vagina were inspected and noted to have a second degree perineal laceration which was repaired in the usual fashion with 3-0 vicryl rapide. . EBL was 300. Patient and infant tolerated delivery well. Amniotic Fluid Description: Clear Placental Delivery Description: Spontaneous Placenta Disposition: [facility] Cord Vessel Description: 3 Vessels Cord Entanglement: None Delayed Cord Clamping: Yes Post Vaginal Delivery Medications Given After Delivery: IV Pitocin Episiotomy Description: None Complication Complications: None Procedures Urinary/Genital [id number]: [id number] Vaginal Delivery [facility]
[2022-10-19] MEDS: Oxytocin 10 UNITS/ML Vial IM (19:30)
[2022-10-19] MEDS: Lidocaine 1% (20 ml mdv) 20 ML Vial INFILT (19:30)
[2022-10-19] MEDS: Oxytocin 15 Units/NS 250ml 15 UNITS/250 ML IV.SOLN 83 UNITS IV (20:08)
[2022-10-20] VITALS (11 sets, daily range): BP systolic 115–140; BP diastolic 69–82; PULSE 64–88; RESP 14–18; TEMP 36.5–36.9; O2SAT 93–97
== END 2022-10-20 20:55 | disposition home or self-care (01) | DRG 807 ==
LOC: WPOUT 08:41 → WP 09:54
PROVIDERS: Obstetrics & Gynecology; Admitting Provider Registered Nurse; Referring Provider Registered Nurse; Visit Provider Registered Nurse
DX: O70.1 Second degree perineal laceration during delivery (principal); Z37.0 Single live birth; Z3A.40 40 weeks gestation of pregnancy
CPT/HCPCS: 59025; 59050; 85025; 86850; 86900; 86901; 99221; A4216; G0378

== ENCOUNTER → 2022-11-27 | Outpatient (CLI) | payer OTHER, SELFPAY ==
[2022-11-27 12:44] LABS: Absolute Lymphocyte Count 2.43 X10^3/uL (0.83-4.51); Absolute Neutrophil Count 2.8 X10^3/uL (2.0-7.7); Basophil# 0.04 X10^3/uL; Basophil% 0.7 % (0-1); Eosinophil# 0.32 X10^3/uL; Eosinophils% 5.3 % (0-5); Lymphocyte # 2.43 X10^3/ul (0.83-4.51); Lymphocyte % 40.4 % (19-41); Mean Corp Hgb Conc 32.6 g/dL (32-36); Mean Corpuscular Hgb 31.2 pg (27.0-32.0); Mean Corpuscular Volume 95.8 fL (81-99); Mean Platelet Vol. 9.9 fl (6.2-12.0); Monocyte# 0.43 X10^3/uL; Monocyte% 7.2 % (0-10); NRBC Flagged by Analyzer 0 % (0-5); Neutrophil # 2.77 X10^3/uL (2.7-7.7); Neutrophil % 46.1 % (47-70); Platelet Count 242 K/mm3 (150-450); RBC Distribution Width CV 12.2 % (11.6-14.6); Red Blood Count 4.49 M/mm3 (4.2-5.4)
[2022-11-27 13:24] LABS: BUN 19 mg/dL (7-18); Creatinine, Serum 0.79 mg/dL (0.55-1.02); Glucose 83 mg/dL (74-106)
[2022-11-27 13:25] LABS: AST(SGOT) 24 U/L (15-37); Alanine Aminotransfer ALT/SGPT 28 U/L (13-56); Albumin, Serum 3.9 g/dL (3.2-5.0); Alkaline Phosphatase 115 U/L (45-117); Anion Gap 4 (5-15); BUN/Creat Ratio 24.1 RATIO (10-20); Calcium,Total 9.5 mg/dL (8.5-10.1); Chloride 108 mmol/L (98-107); EST Glomerular Filtration Rate 92 mL/min (>60); Est Glom Filt Rate - Afr Amer 111 mL/min (>60); Globulin 3.9 g/dL (2.2-4.2); Potassium 4.2 mmol/L (3.5-5.1); Protein, Total 7.8 g/dL (6.4-8.2); Sodium Level 137 mmol/L (136-145)
[2022-12-04 19:45] LABS: HPV Reflexed? NOT INDICATED
== END | disposition home or self-care (01) ==
PROVIDERS: Referring Provider Obstetrics & Gynecology; Visit Provider Obstetrics & Gynecology
DX: Z12.4 Encounter for screening for malignant neoplasm of cervix (principal); R79.89 Other specified abnormal findings of blood chemistry
CPT/HCPCS: 36415; 80053; 85025; 88175; G0145

== ENCOUNTER → 2022-12-06 | Outpatient (CLI) | payer OTHER, SELFPAY ==
--- NOTE | 2022-12-06 10:45 | US_ITS ---
STUDY: ABDOMINAL ULTRASOUND - RIGHT UPPER QUADRANT REASON FOR VISIT: Female, 27 years old ELEVATED LIVER ENZYMES TECHNIQUE: Ultrasound evaluation of the right upper quadrant was performed with real-time and static hodgson-scale imaging. TECHNICAL QUALITY: Adequate. COMPARISON: 08/24/2022. FINDINGS: Liver: The liver measures 15.3 cm. There is normal echogenicity of the liver. The bile ducts are within normal limits. There is hepatic color flow. The direction of portal flow is hepatopetal. There is no demonstrated mass lesion. Gallbladder: Normal distended gallbladder. The gallbladder wall measures 0.9 mm. There is a negative sonographic Browne''s sign. There is no pericholecystic fluid. There are no gallstones. Common Bile Duct (C.B.D.): The common bile duct measures 2.1 mm. Pancreas: Normal size of the head, body and tail of the pancreas. There is normal echogenicity of the pancreas. There is no demonstrated pancreatic mass or cyst. The pancreatic duct is not dilated. Right Kidney: Normal size of the right kidney. The right kidney measures 10.2 x 5.7 x 3.3 cm. Normal renal cortex. The right cortex measures 1.5 cm. There is no demonstrated renal mass or cyst. There is no right hydronephrosis. US/Abdomen Limited IMPRESSION: Normal right upper quadrant ultrasound examination. Electronically Signed: Jameson Alarcon MD at 16:44 EDT ,
== END | disposition home or self-care (01) ==
LOC: US 10:43
DX: R94.5 Abnormal results of liver function studies (principal)
CPT/HCPCS: 76705

== ENCOUNTER → 2022-12-20 | Outpatient (CLI) | payer OTHER, SELFPAY | END | disposition home or self-care (01) | LOC: LABSPEC 14:26 | PROVIDERS: Referring Provider Obstetrics & Gynecology; Visit Provider Obstetrics & Gynecology | DX: N89.8 Other specified noninflammatory disorders of vagina (principal); R30.0 Dysuria | CPT/HCPCS: 87070; 87077; 87086; 87088; 87186; 87205 ==

== ENCOUNTER 2025-08-07 11:58 | Outpatient (CLI) | payer OTHER, SELFPAY ==
[2025-08-09 23:07] LABS: Chlamydia By Nucleic Acid AMP Negative (Negative); Gonococcus By Nucleic Acid AMP Negative (Negative)
== END 2025-08-07 23:59 | disposition home or self-care (01) ==
LOC: LABSPEC 11:59
PROVIDERS: Visit Provider Student in an Organized Health Care Education/Training Program
DX: O09.90 Supervision of high risk pregnancy, unspecified, unspecified trimester (principal); Z3A.00 Weeks of gestation of pregnancy not specified
CPT/HCPCS: 87086; 87088; 87491; 87591